=== PATIENT | male | born 1985 | race American Indian/Alaskan Native ===

== ENCOUNTER 2019-06-26 14:08 | Emergency (ER) | payer SELFPAY ==
--- NOTE | 2019-06-26 14:36 | Event Note ---
ED Screening Note Date of service: 06/26/19 Time: 14:34 ED Screening Note: 34 y o male was sent by Urgent care for elev preseeure PMH: no htn, DM no meds cc od v/d and dizziness This initial assessment/diagnostic orders/clinical plan/treatment(s) is/are subject to change based on patients health status, clinical progression and re- assessment by fellow clinical providers in the ED. Further treatment and workup at subsequent clinical providers discretion. Patient/guardian urged not to elope from the ED as their condition may be serious if not clinically assessed and managed. Initial orders include: labs, clonidine in triage
[2019-06-26] MEDS ORDERED: cloNIDine 0.2 MG TAB PO ONE (14:39)
[2019-06-26] MEDS ORDERED: cloNIDine 0.2 MG TAB ONE (14:41)
[2019-06-26 16:19] VITALS: BP 198/137
[2019-06-26] MEDS ORDERED: ONDANSETRON 4 MG ODT TAB PO ONE (16:20)
[2019-06-26 16:33] LABS: Basophils % (Auto) 0.5 % (0.0-1.8); Eosinophils # (Auto) 0.1 K/mm3 (0.0-0.4); Eosinophils % (Auto) 1.8 % (0.0-4.3); Hematocrit 45.7 % (35.5-45.6); Hemoglobin 15.6 gm/dl (11.8-15.2); Lymphocytes # (Auto) 1.5 K/mm3 (1.2-5.4); Lymphocytes % (Auto) 18.6 % (13.4-35.0); Mean Corpuscular HGB Conc 34 % (32-34); Mean Corpuscular Volume 76 fl (84-94); Monocytes # (Auto) 0.5 K/mm3 (0.0-0.8); Monocytes % (Auto) 6.5 % (0.0-7.3); Platelet Count 182 K/mm3 (140-440); Red Blood Count 6.02 M/mm3 (3.65-5.03); Red Cell Distribution Width 14.5 % (13.2-15.2)
[2019-06-26 16:58] LABS: Alanine Aminotransferase 18 units/L (7-56); Albumin 4.5 g/dL (3.9-5); BUN/Creatinine Ratio 9; Blood Urea Nitrogen 11 mg/dL (9-20); Calcium 9.4 mg/dL (8.4-10.2); Hemolysis Index 8
--- NOTE | 2019-06-26 17:59 | Emergency Department Report ---
ED N/V/D HPI - General Chief complaint: Nausea/Vomiting/Diarrhea Stated complaint: HBP Time Seen by Provider: 06/26/19 17:55 Source: patient Mode of arrival: Ambulatory Limitations: No Limitations - History of Present Illness Initial comments: This very pleasant 34-year-old male with a past medical history type 2 diabetes who presents the emergency department with a chief complaint of nausea, vomiting, diarrhea over the past 3 days. He reports he went to urgent care today due to these symptoms and they diagnosed him with an otitis media of his left ear but due to his blood pressure being elevated at 228/119 a recommended that he come to the emergency department for evaluation of his high blood pressure. States he has never been told he has high blood pressure in the past and has never been on medication for this. He usually takes metformin for his type 2 diabetes however has not taken it for many months due to being out of it. He is not currently have a primary care doctor. Other than the vomiting and diarrhea he denies any other symptoms. He denies headache, dizziness, blurry vision, melena, she is here, hematemesis, fever, chills, night sweats, blurry vision, weakness or any other associated symptoms - Related Data Home Medications Medication Instructions Recorded Confirmed Last Taken metFORMIN [Glucophage] 1,000 mg PO BID 08/24/13 04/08/16 08/24/13 Previous Rx's Medication Instructions Recorded Last Taken Type Insulin Glulisine [Apidra] See Protocol SUB-Q ACHS 30 Days 04/09/16 Unknown Rx units Insulin NPH/Regular [NovoLIN 70/30] 20 unit SUB-Q BIDDIAB 30 Days 04/09/16 Unknown Rx units Sulfamethoxazole/Trimethoprim 1 each PO BID #20 tablet 04/09/16 Unknown Rx [Bactrim DS TAB] Ondansetron [Zofran Odt] 4 mg PO Q8HR PRN #30 tab.rapdis 06/26/19 Unknown Rx amLODIPine 10 mg PO DAILY #30 tab 06/26/19 Unknown Rx metFORMIN [Glucophage] 500 mg PO BID #60 tablet 06/26/19 Unknown Rx Allergies Allergy/AdvReac Type Severity Reaction Status Date / Time No Known Allergies Allergy Verified 08/25/13 01:08 ED Review of Systems ROS: Stated complaint: HBP Other details as noted in HPI Comment: All other systems reviewed and negative Constitutional: denies: chills, fever Eyes: denies: eye pain, eye discharge, vision change ENT: as per HPI, ear pain. denies: throat pain Respiratory: denies: cough, shortness of breath, wheezing Cardiovascular: denies: chest pain, palpitations Endocrine: no symptoms reported Gastrointestinal: as per HPI, nausea, vomiting, diarrhea. denies: abdominal pain Genitourinary: denies: urgency, dysuria Musculoskeletal: denies: back pain, joint swelling, arthralgia Skin: denies: rash, lesions Neurological: denies: headache, weakness, paresthesias Psychiatric: denies: anxiety, depression Hematological/Lymphatic: denies: easy bleeding, easy bruising ED Past Medical Hx - Past Medical History Previous Medical History?: No Hx Hypertension: No Hx Heart Attack/AMI: No Hx Congestive Heart Failure: No Hx Diabetes: Yes Hx Deep Vein Thrombosis: No Hx Pulmonary Embolism: No Hx GERD: No Hx Liver Disease: No Hx Renal Disease: No Hx Sickle Cell Disease: No Hx Arthritis: No Hx Headaches / Migraines: No Hx Seizures: No Hx Kidney Stones: No Hx Asthma: No Hx COPD: No Hx Tuberculosis: No Hx Dementia: No Hx HIV: No - Surgical History Hx Coronary Stent: No Hx Open Heart Surgery: No Hx Pacemaker: No Hx Internal Defibrillator: No Hx Cholecystectomy: No Hx Appendectomy: No Hx Breast Surgery: No Additional Surgical History: Left upper arm hardware - Social History Smoking Status: Never Smoker Substance Use Type: None - Medications Home Medications: Home Medications Medication Instructions Recorded Confirmed Last Taken Type metFORMIN [Glucophage] 1,000 mg PO BID 08/24/13 04/08/16 08/24/13 History Insulin Glulisine [Apidra] See Protocol SUB-Q ACHS 30 Days 04/09/16 Unknown Rx units Insulin NPH/Regular [NovoLIN 70/30] 20 unit SUB-Q BIDDIAB 30 Days 04/09/16 Unknown Rx units Sulfamethoxazole/Trimethoprim 1 each PO BID #20 tablet 04/09/16 Unknown Rx [Bactrim DS TAB] Ondansetron [Zofran Odt] 4 mg PO Q8HR PRN #30 tab.rapdis 06/26/19 Unknown Rx amLODIPine 10 mg PO DAILY #30 tab 06/26/19 Unknown Rx metFORMIN [Glucophage] 500 mg PO BID #60 tablet 06/26/19 Unknown Rx ED Physical Exam - General Limitations: No Limitations General appearance: alert, in no apparent distress - Head Head exam: Present: atraumatic, normocephalic - Eye Eye exam: Present: normal appearance, PERRL, EOMI Pupils: Present: normal accommodation - ENT ENT exam: Present: normal exam, normal orophraynx, mucous membranes dry, mucous membranes moist, TM's normal bilaterally - Neck Neck exam: Present: normal inspection, full ROM. Absent: tenderness, meningismus - Respiratory Respiratory exam: Present: normal lung sounds bilaterally. Absent: respiratory distress, wheezes, rales, rhonchi, stridor - Cardiovascular Cardiovascular Exam: Present: regular rate, normal rhythm, normal heart sounds. Absent: systolic murmur, diastolic murmur, rubs, gallop - GI/Abdominal GI/Abdominal exam: Present: soft, normal bowel sounds, other (negative McBurney's point tenderness, negative Amaro sign.). Absent: distended, tenderness, guarding, rebound, rigid - Rectal Rectal exam: Present: deferred - Extremities Exam Extremities exam: Present: normal inspection, full ROM. Absent: tenderness, normal capillary refill, pedal edema, joint swelling, calf tenderness - Back Exam Back exam: Present: normal inspection, full ROM. Absent: tenderness, CVA tenderness (R), CVA tenderness (L) - Neurological Exam Neurological exam: Present: alert, oriented X3, CN II-XII intact, normal gait, other (no focal neurologic deficits, normal strength and sensation to the bilateral upper and lower extremities, normal finger-nose and [id number], normal gait without ataxia.) - Psychiatric Psychiatric exam: Present: normal affect, normal mood - Skin Skin exam: Present: warm, dry, intact, normal color. Absent: rash ED Course Vital Signs 06/26/19 06/26/19 14:29 16:17 Temperature 98.0 F Pulse Rate 71 67 Respiratory 20 18 Rate Blood Pressure 228/119 198/137 [Right] O2 Sat by Pulse 100 99 Oximetry ED Medical Decision Making - Lab Data Result diagrams: 06/26/19 16:13 06/26/19 16:09 Lab Results 06/26/19 06/26/19 06/26/19 Range/Units 16:09 16:09 16:13 WBC 7.9 (4.5-11.0) K/mm3 RBC 6.02 H (3.65-5.03) M/mm3 Hgb 15.6 H (11.8-15.2) gm/dl Hct 45.7 H (35.5-45.6) % MCV 76 L (84-94) fl MCH 26 L (28-32) pg MCHC 34 (32-34) % RDW 14.5 (13.2-15.2) % Plt Count 182 (140-440) K/mm3 Lymph % (Auto) 18.6 (13.4-35.0) % Gila % (Auto) 6.5 (0.0-7.3) % Eos % (Auto) 1.8 (0.0-4.3) % Baso % (Auto) 0.5 (0.0-1.8) % Lymph # 1.5 (1.2-5.4) K/mm3 Gila # 0.5 (0.0-0.8) K/mm3 Eos # 0.1 (0.0-0.4) K/mm3 Baso # 0.0 (0.0-0.1) K/mm3 Seg Neutrophils % 72.6 H (40.0-70.0) % Seg Neutrophils # 5.8 (1.8-7.7) K/mm3 Sodium 136 L (137-145) mmol/L Potassium 3.7 (3.6-5.0) mmol/L Chloride 98.3 (98-107) mmol/L Carbon Dioxide 25 (22-30) mmol/L Anion Gap 16 mmol/L BUN 11 (9-20) mg/dL Creatinine 1.2 (0.8-1.5) mg/dL Estimated GFR > 60 ml/min BUN/Creatinine Ratio 9 % Glucose 284 H (75-100) mg/dL Calcium 9.4 (8.4-10.2) mg/dL Total Bilirubin 0.50 (0.1-1.2) mg/dL AST 14 (5-40) units/L ALT 18 (7-56) units/L Alkaline Phosphatase 91 (35-129) units/L Troponin T 0.014 (0.00-0.029) ng/mL Total Protein 7.9 (6.3-8.2) g/dL Albumin 4.5 (3.9-5) g/dL Albumin/Globulin Ratio 1.3 % Lipase 35 (13-60) units/L - EKG Data -: EKG Interpreted by Me EKG shows normal: sinus rhythm Rate: normal - Medical Decision Making Patient is nontoxic in no acute distress. Patient having symptoms nausea, vomiting, diarrhea without abdominal pain over the past few days. He went to urgent care and they sent him emergently to the emergency department due to elevated blood pressure. This forces blood pressure goes he is asymptomatic with no signs of end organ failure. Workup was ordered in triage including EKG which was relatively normal with no acute ST or T-wave abnormalities, no STEMI, lab work was also ordered and returned relatively normal other than a mild elevation of his hemoglobin and hematocrit likely due to hemoconcentration, normal kidney function, liver function, troponin, lipase. His chemistry was normal other than an elevation in his glucose at 284 but no signs of DKA or HHS with a normal bicarbonate 9. The patient had a normal neurologic examination and EHO 0. He was given clonidine in triage and his blood pressure began to trend downward. I will treat the patient with amlodipine 10 mg by mouth daily in addition metformin 500 mg twice a day and educated him about the importance of following up with a primary care doctor. I'll treat him with Zofran for his nausea. He was instructed about the importance of primary care follow-up that could help prevent chronic illnesses such as kidney disease secondary to his high blood pressure and diabetes, stroke, heart attack. He is educated about lifestyle modifications cueing diet and exercise as well as maintaining a healthy weight. Patient verbalized understanding of these instructions and is very comfortable with this plan. He understood the importance of follow-up and agreed to follow up with primary care doctor which will be provided for him. Patient had normal labs, no right lower quadrant tenderness, little Summers score making acute appendicitis unlikely. He had no right upper quadrant tenderness normal LFTs negative Amaro sign making cholecystitis or cholelithiasis unlikely. There is tolerating by mouth fluids and had normal bowel sounds making small bowel obstruction unlikely. He is nontoxic and in no acute distress and is suspect his symptoms are likely more viral causing the vomiting and diarrhea. Recommended increase hydration and return to the ER with any change or worsening symptoms. - Differential Diagnosis asymptomatic hypertension, diabetes, Critical care attestation.: If time is entered above; I have spent that time in minutes in the direct care of this critically ill patient, excluding procedure time. ED Disposition Clinical Impression: Asymptomatic hypertension, Nausea vomiting and diarrhea Uncontrolled diabetes mellitus Qualifiers: Diabetes mellitus type: type 2 Glycemic state: with hyperglycemia Qualified Code(s): E11.65 - Type 2 diabetes mellitus with hyperglycemia Disposition: - TO HOME OR SELFCARE Is pt being admited?: No Does the pt Need Aspirin: No Instructions: Hypertension (ED), Diabetes Mellitus Type 2 in Adults (ED), Acute Nausea and Vomiting (ED) Prescriptions: amLODIPine 10 mg PO DAILY #30 tab metFORMIN [Glucophage] 500 mg PO BID #60 tablet Ondansetron [Zofran Odt] 4 mg PO Q8HR PRN #30 tab.rapdis PRN Reason: Nausea Referrals: PRIMARY CAREMD [Primary Care Provider] - 3-5 Days MARIA LUZ SIMMONS MD [Staff Physician] - 3-5 Days [facility] [Provider Group] - 3-5 Days ITZEL EATON MD [Staff Physician] - 3-5 Days Forms: Work/School Release Form(ED) Time of Disposition: 18:05
== END 2019-06-26 18:17 | disposition home or self-care (01) ==
LOC: ED 14:08
DX: R11.2 Nausea with vomiting, unspecified (principal); R19.7 Diarrhea, unspecified; I10 Essential (primary) hypertension; E11.9 Type 2 diabetes mellitus without complications; Z79.899 Other long term (current) drug therapy
CPT/HCPCS: 36415; 80053; 83690; 84484; 85025; 93005; 93010; Q0162